=== PATIENT | female | born 1990 | race Caucasian/White ===

== ENCOUNTER 2021-01-07 12:39 | Emergency (ER) | payer MEDICAID ==
[~2021-01-07] VITALS: Ht 167.6 cm; Wt 60.0 kg
[2021-01-07 18:57] VITALS: BP 102/42
[2021-01-07] MEDS ORDERED: CYCLOBENZAPRINE HCL 10 MG TABLET PO ONE (19:00)
[2021-01-07] MEDS ORDERED: ACETAMINOPHEN 325 MG TABLET PO ONE (19:00)
== END 2021-01-07 19:11 | disposition home or self-care (01) ==
LOC: EMS 12:44
DX: M54.2 Cervicalgia (principal); R07.9 Chest pain, unspecified; M54.5 Low back pain; M25.511 Pain in right shoulder
CPT/HCPCS: 71046; 72040; 72100; 99284